=== PATIENT | female | born 1965 | race Caucasian/White ===

== ENCOUNTER 2018-05-20 11:57 | Observation (INO) ==
[2018-05-20] MEDS ORDERED: Dextrose 50% in Water 50 ML Vial IV.PUSH PRN (15:24)
[2018-05-20] MEDS ORDERED: Sodium Chloride 0.9% 2 ML Flush PRN IV.FLUSH (16:23)
[2018-05-20] MEDS: Insulin NovoLOG Aspart Correctional Sugar Inj SQ SCH (23:34)
[2018-05-20] MEDS: Sodium Chloride 0.9% 2 ML Flush BID IV.FLUSH SCH (23:37)
[2018-05-20] MEDS: Sod Chloride 0.9% Inj 1,000 ML IV.CONT SCH (23:37)
[2018-05-21] MEDS: Sod Chloride 0.9% Inj 1,000 ML IV.CONT SCH ×3 (06:07→17:10)
[2018-05-21] MEDS: Insulin NovoLOG Aspart Correctional Sugar Inj SQ SCH ×4 (06:54→17:16)
--- NOTE | 2018-05-21 08:17 | P.HP ---
History of Present Illness Primary Care Physician: UNKNOWN Chief Complaint: nausea and lightheadedness History of Present Illness: This is a 52-year-old female patient with a known medical history of on insulin who presented to the ED with nausea, vomiting and lightheadedness with increased glucose. Patient states that she has been relatively noncompliant with her diabetes over the past several years and seems to be uneducated on how to manage her diabetes appropriately. She states that she intermittently checks her blood sugar and has been managing her insulin independently at home. She states that her readings were in the 500s over the past couple days with associated nausea, vomiting and lightheadedness. Patient states she presented to her PCP and she was advised to present to the ED for further workup of hyperglycemia. Upon presentation patient was found to be in DKA, anion gap 16, random glucose 46. This has improved today on BMP. Patient feels much improved today. Patient denies any recent illness at home including fever, chills, cough, headache, chest pain, dumping, diarrhea or dysuria. - Diagnosis (1) DKA (diabetic ketoacidoses) (2) Type 1 diabetes mellitus Review of Systems All other systems reviewed negative except as stated in HPI PMFSH - History History Provided By: Patient - Medical History Medical History: Medical History (Last Reviewed 05/21/18 @ 12:28 by Tahira Ann) Depression Diabetes - Surgical History Surgical History: Surgical History (Last Reviewed 05/21/18 @ 12:28 by Tahira Ann) Hx of section Hx of tonsillectomy - Family History Family History: Family History (Last Updated 05/21/18 @ 12:29 by Tahira Ann) Other Diabetes - Social History I have reviewed the patient's Social History: Yes - Tobacco History Second Hand Smoke Exposure: Yes Tobacco Use In Past 30 Days: Yes Smoking Status: Current some day smoker Tobacco Type: Cigarettes - Alcohol History How Often Do You Have a Drink Containing Alcohol: Never - Substance Use History Substance History: No History of Abuse - Travel History Recent Travel in the [place] Within the Last 8 Weeks: No Recent Travel Out of the Country Within the Last 8 Weeks: No Medications and Allergies Active Medications: Active Medications Dextrose (D50w Vial) 50 ml IV.PUSH UNSCH PRN PRN Reason: PER HYPOGLYCEMIA PROTOCOL Glucagon (Glucagon Inj) 1 mg OTHER PRN PRN PRN Reason: for Hypoglycemia Protocol Sodium Chloride (Ns Inj) 1,000 mls @ 125 mls/hr IV.CONT .Q8H FRANCES Last Admin: 05/21/18 07:38 Dose: Not Given Insulin Aspart (Novolog Insulin Correctional Sugar Inj) 0 unit SQ ACHS FRANCES; Protocol Last Admin: 05/21/18 07:47 Dose: 7 unit Sodium Chloride (Ns Flush) 2 ml IV.FLUSH BID FRANCES Last Admin: 05/20/18 23:37 Dose: 2 ml Sodium Chloride (Ns Flush) 2 ml IV.FLUSH PRN PRN PRN Reason: FLUSH AFTER USING IV ACCESS Allergies Allergy/AdvReac Type Severity Reaction Status Date / Time kiwi Allergy Hives Verified 05/20/18 12:00 shellfish derived Allergy Hives Verified 05/20/18 12:00 Home Medications Medication Instructions Recorded Confirmed Type Humulin 70/30 U-100 KwikPen 20 units SUBCUT BID 05/16/18 05/21/18 History insulin regular human 0 units SUBCUT ACHS 05/20/18 05/21/18 History Exam Vital signs: Vital Signs 05/20/18 21:30 05/21/18 00:00 Temperature 97.2 F L 97.0 F L Pulse Rate 70 76 Respiratory Rate 20 20 Blood Pressure 112/76 114/56 L Pulse Oximetry 97 97 Intake & Output 05/20/18 05/21/18 05/21/18 18:59 06:59 18:59 Intake Total 1480 / 1480 Balance 1480 / 1480 Weight 68 kg Intake: IV 1000 / 1000 NS Inj 1,000 ML @ 125 mls/hr IV 1000 / 1000 .CONT .Q8H [facility] Rx#:[id number] Oral 480 / 480 Other: # Voids 2 Date of Last Bowel Movement 05/19/18 Weight On Admission 67.4 kg Narrative: GENERAL: Well-developed, well-nourished patient in [facility]. SKIN: Warm and dry. No rash. HEAD: Normocephalic. Atraumatic. EYES: Pupils equal and round. No scleral icterus. No injection or drainage. ENT: No nasal bleeding or discharge. Mucous membranes pink and moist. NECK: Supple. Trachea midline. CARDIOVASCULAR: Regular rate and rhythm. S1, S2 noted. No murmur appreciated. RESPIRATORY: No accessory muscle use. Clear to auscultation. Breath sounds equal bilaterally. GASTROINTESTINAL: Abdomen soft, non-tender, nondistended. Normoactive bowel sounds x4. MUSCULOSKELETAL: No obvious deformities. Extremities without clubbing, cyanosis , or edema. NEUROLOGICAL: Awake and alert. No obvious cranial nerve deficits. Motor grossly within normal limits. 5/5 muscle strength in bilateral upper and lower extremities. Normal speech. PSYCHIATRIC: Appropriate mood and affect; insight and judgment normal. Results - Labs CBC & Chem 7: 05/21/18 08:05 Labs: Laboratory Results - last 24 hr 05/20/18 05/21/18 05/21/18 23:36 06:06 07:37 POC Glucose 403 H 288 H 281 H Caprini VTE Risk Assessment Caprini VTE Risk Assessment: No/Low Risk (score <= 1) Caprini Risk Assessment Model: Point Value = 1 Point Value = 2 Point Value = 3 Point Value = 5 Age 41-60 Minor surgery BMI > 25 kg/m2 Swollen legs Varicose veins or History of unexplained or recurrent spontaneous Oral contraceptives or hormone replacement Sepsis (< 1 month) Serious lung disease, including pneumonia (< 1 month) Abnormal pulmonary function Acute myocardial infarction Congestive heart failure (< 1 month) History of inflammatory bowel disease Medical patient at bed rest Age 61-74 Arthroscopic surgery Major open surgery (> 45 min) Laparoscopic surgery (> 45 min) Malignancy Confined to bed (> 72 hours) Immobilizing plaster cast Central venous access Age >= 75 History of VTE Family history of VTE Factor V Leiden Prothrombin [id number] Lupus anticoagulant Anticardiolipin antibodies Elevated serum homocysteine Heparin-induced thrombocytopenia Other congenital or acquired thrombophilia Stroke (< 1 month) Elective arthroplasty Hip, pelvis, or leg fracture Acute spinal cord injury (< 1 month) Prophylaxis Regimen: Total Risk Factor Score Risk Level Prophylaxis Regimen 0-1 Low Early ambulation 2 Moderate Order ONE of the following: *Sequential Compression Device (SCD) *Heparin 5000 units SQ BID 3-4 Higher Order ONE of the following medications: *Heparin 5000 units SQ TID *Enoxaparin/Lovenox 40 mg SQ daily (WT < 150 kg, CrCl > 30 mL/min) *Enoxaparin/Lovenox 30 mg SQ daily (WT < 150 kg, CrCl > 10-29 mL/min) *Enoxaparin/Lovenox 30 mg SQ BID (WT < 150 kg, CrCl > 30 mL/min) AND/OR *Sequential Compression Device (SCD) 5 or more Highest Order ONE of the following medications: *Heparin 5000 units SQ TID (Preferred with Epidurals) *Enoxaparin/Lovenox 40 mg SQ daily (WT < 150 kg, CrCl > 30 mL/min) *Enoxaparin/Lovenox 30 mg SQ daily (WT < 150 kg, CrCl > 10-29 mL/min) *Enoxaparin/Lovenox 30 mg SQ BID (WT < 150 kg, CrCl > 30 mL/min) AND *Sequential Compression Device (SCD) Assessment and Plan - Assessment (1) DKA (diabetic ketoacidoses) Code(s): E13.10 - Other specified diabetes mellitus with ketoacidosis without coma Status: Acute (2) Type 1 diabetes mellitus Code(s): E10.9 - Type 1 diabetes mellitus without complications Status: Acute - Plan This is a 52-year-old female patient with: Diabetic ketoacidosis, resolved. Type 1 diabetes mellitus, chronic Noncompliance -Patient presented with nausea, vomiting and lightheadedness with random glucose in the 400s as well as anion gap 16. -Was given Novolog 12 units in ED. ACCU check ACHS, sliding scale, cover as needed. Started on Levemir. Assess blood sugar trends. -BMP this morning has shown improvement and anion gap closure. Patient symptoms have improved significantly overnight. -Blood sugar trends in the 200s. -Diabetic diet. RN has educated on importance of compliance. flight attendant and linen grader consulted, awaiting input. -Awaiting hemoglobin a1c results. DVT Prophylaxis: SCDs. Ambulation. Discharge Planning: Anticipate DC later this afternoon after concrete fence builder and linen grader input.
[2018-05-21] MEDS: Sodium Chloride 0.9% 2 ML Flush BID IV.FLUSH SCH (08:22)
[2018-05-21 08:34] LABS: Potassium 4.3 meq/L (3.5-5.1)
[2018-05-21 08:36] LABS: Calcium 7.9 mg/dL (8.5-10.1)
[2018-05-21 08:37] LABS: Carbon Dioxide 22.3 meq/L (21.0-32.0)
[2018-05-21] MEDS ORDERED: Insulin Detemir Inj 1,000 UNIT/10 ML Vial SQ SCH (10:30)
[2018-05-21 17:16] LABS: Hemoglobin A1c 11.2 % (4.3-6.0)
== END 2018-05-21 19:00 | disposition home or self-care (01) ==
LOC: PH3 21:50 → PHEDDLT 21:50
PROVIDERS: ADMIT Internal Medicine; ATTEND Internal Medicine